=== PATIENT | female | born 1950 ===

== ENCOUNTER → 2018-11-01 | Outpatient (CLI) | payer MEDICARE, OTHER ==
[~2018-11-01] MED LIST: BUPIVACAINE MPF 0.5% 30 ML VIAL. INJ ONE; IOHEXOL 300 MG/ML 50 ML VIAL. INT ART ONE; LIDOCAINE WITH 8.4% SOD BICARB 3 ML DISP.SYRIN. INJ ONE; methylPREDNISolone ACETATE 80 MG/ML VIAL. INJ ONE
--- NOTE | 2018-11-01 14:08 | RAD ---
Examination: ARTHROCENT [facility] JT ASP/INJ RT History: RT HIP PAIN/OSTEOARTHRITIS
0.5 MIN FLUORO
2 IMAGES SENT
4ML OMNIPAQUE 300 USED
6ML LIDOCAINE 1% USED
5ML BUPIVACAINE 0.5% USED
1ML DEPO 80MG USED Comparison/Correlation: None Findings: Risks and benefits of right hip joint therapeutic injection under fluoroscopic guidance were discussed with patient and informed consent was obtained. Fluoroscopy was utilized for 0.5 minutes. Cleansing with Betadine overlying the right hip was performed after inflammatory fluoroscopic imaging to determine the site of needle placement. Sterile drape was placed. A total of 6 cc 1 percent lidocaine was administered along the expected course of the needle track. A 22-gauge spinal needle was introduced under fluoroscopic guidance into the lateral right hip joint capsule. 4 cc Omnipaque 300 was injected to confirm needle placement. Subsequently, 80 mg of Depo-Medrol and 5 cc bupivacaine 0.5 percent was injected into the right hip joint capsule. The patient tolerated the procedure well without immediate comp occasions. 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 Impression: Successful right hip joint injection of Depo-Medrol and 0.5 percent bupivacaine. Electronically signed by: Napoleon Lopez MD (11/01/2018 2:05 PM) [facility]
== END | disposition home or self-care (01) ==
LOC: RAD 08:49
PROVIDERS: ATTEND Orthopaedic Surgery Sports Medicine
DX: M16.11 Unilateral primary osteoarthritis, right hip (principal)
CPT/HCPCS: 20610; 77002; J1040; J3490; Q9967